=== PATIENT | male | born 1995 | race Two or more races ===

== ENCOUNTER 2018-09-19 08:19 | Emergency (ER) | payer MEDICAID, OTHER ==
[~2018-09-19] VITALS: Ht 172.7 cm; Wt 67.6 kg
[2018-09-19 08:55] VITALS: BP 104/69
[2018-09-19] MEDS ORDERED: IBUPROFEN 800 MG TAB PO ONE (09:15)
[2018-09-19 09:40] LABS: Urine Bacteria NONE SEEN /hpf (None Seen); Urine Blood Negative /uL (Negative); Urine Mucus FEW (None Seen); Urine Specific Gravity 1.025 (1.001-1.035); Urine WBC <1 /hpf (0 - 3)
== END 2018-09-19 10:32 | disposition home or self-care (01) ==
LOC: ER 08:19
DX: M25.551 Pain in right hip (principal)
CPT/HCPCS: 73502; 81001

== ENCOUNTER 2018-10-23 09:46 | Emergency (ER) | payer MEDICAID ==
[~2018-10-23] VITALS: Ht 172.7 cm; Wt 70.8 kg
[2018-10-23 09:57] VITALS: BP 129/80
== END 2018-10-23 10:38 | disposition home or self-care (01) ==
LOC: ER 09:46
DX: S93.504A Unspecified sprain of right lesser toe(s), initial encounter (principal); W22.8XXA Striking against or struck by other objects, initial encounter; Y93.89 Activity, other specified; Y99.8 Other external cause status; Y92.89 Other specified places as the place of occurrence of the external cause
CPT/HCPCS: 73660